=== PATIENT | male | born 1975 | race Hispanic/Latino ===

== ENCOUNTER 2016-10-21 22:16 | Emergency (ER) | payer OTHER ==
[2016-10-21 22:26] VITALS: BP 175/111; PULSE 70; RESP 17; TEMP 98.2; O2SAT 100
[2016-10-21] MEDS ORDERED: Oxycodone/Acetaminophen 5/325 mg Tab PO STA (23:00)
--- NOTE | 2016-10-21 23:02 | ED PDOC ---
HPI: Dental Pain/Injury Time Seen by Provider: 10/21/16 22:38 Chief Complaint (Nursing): Dental Pain Chief Complaint (Provider): dental pain History Per: Patient Additional Complaint(s): Patient is s/p root canal yesterday and presents with left lower mandible pain. Patient took one tablet of Tylenol with codeine earlier and one leftover Percocet from previous procedure but still has severe pain. Patient also took 2 ibuprofen. He is currently on clindamycin. Patient follows up with his dentist for patient and he describes it as sharp and shooting. Denies fever or chills. Pain is currently a 9/10. Past Medical History Reviewed: Historical Data, Nursing Documentation, Vital Signs Vital Signs: Last Vital Signs Temp 98.2 F 10/21/16 22:24 Pulse 70 10/21/16 22:24 Resp 17 10/21/16 22:24 BP 175/111 H 10/21/16 22:24 Pulse Ox 100 10/21/16 22:24 - Medical History PMH: No Chronic Diseases - Surgical History Surgical History: No Surg Hx - Family History Family History: States: Diabetes - Living Arrangements Living Arrangements: With Family - Social History Current smoker - smoking cessation education provided: No Alcohol: None Drugs: Denies - Home Medications Home Medications: Ambulatory Orders Medication Instructions Recorded oxyCODONE/Acetaminophen [Percocet 1 ea PO BID PRN #8 tab 01/06/15 5/325 mg Tab] oxyCODONE/Acetaminophen [Percocet 1 ea PO Q6H PRN #8 tab 10/21/16 5/325 mg Tab] - Allergies Allergies/Adverse Reactions: Allergies Allergy/AdvReac Type Severity Reaction Status Date / Time No Known Allergies Allergy Verified 10/21/16 22:27 Review of Systems ROS Statement: Except As Marked, All Systems Reviewed And Found Negative Constitutional: Negative for: Fever, Chills ENT: Positive for: Mouth Pain (dental pain) Neurological: Negative for: Headache, Dizziness Physical Exam - Reviewed Nursing Documentation Reviewed: Yes Vital Signs Reviewed: Yes - Physical Exam Appears: Positive for: Well, Non-toxic, No Acute Distress Skin: Negative for: Rash Eye Exam: Positive for: Normal appearance, EOMI, PERRL ENT: Positive for: Other (post surgical changes noted to left lower mandible, temporary filling noted to tooth #18, moderate tenderness to palpation, no abscess or facial swelling, airway patent, uvula midline) Neurologic/Psych: Positive for: Alert, Oriented - ECG O2 Sat by Pulse Oximetry: 100 Pulse Ox Interpretation: Normal Medical Decision Making Medical Decision Makin41 year old with acute dental pain RX history reviewed. Patient filled rx for 5 percocet on October 16. No other rx for pain meds noted. Plan: 1 tab percocet in ED Rx for 8 tabs. Patient is aware that as per [facility] Pain Management Policy, 1 time courtesy of rx is being given. Copy of policy given to patient. He was advised to follow up GIULIANA with dentist. Disposition - Clinical Impression Clinical Impression: Pain, dental - Patient ED Disposition Is Patient to be Admitted: No Counseled Patient/Family Regarding: Diagnosis, Need For Followup, Rx Given - Disposition Referrals: [facility] [Outside] Disposition: Routine/Home Disposition Time: 23:00 Condition: STABLE Additional Instructions: Follow up GIULIANA with dentist Prescriptions: oxyCODONE/Acetaminophen [Percocet 5/325 mg Tab] 1 ea PO Q6H PRN #8 tab PRN Reason: Pain, Severe (8-10) Instructions: Toothache (ED)
== END 2016-10-21 23:25 | disposition home or self-care (01) ==
LOC: H.ER 22:16
DX: K08.89 Other specified disorders of teeth and supporting structures (principal)